=== PATIENT | male | born 1995 | race Caucasian/White ===

== ENCOUNTER 2020-10-16 22:04 | Emergency (ER) | payer SELFPAY ==
[2020-10-16] MEDS ORDERED: predniSONE 20 MG TAB ONE (22:55)
== END 2020-10-16 23:38 | disposition home or self-care (01) ==
LOC: ERS 22:04
DX: J20.9 Acute bronchitis, unspecified (principal)
CPT/HCPCS: 71045; 94640; J7512; J7620